=== PATIENT | female | born 1985 | race Caucasian/White ===

== ENCOUNTER 2020-02-08 15:11 | Inpatient (IN) | payer BC ==
[~2020-02-08 15:11] MED LIST: Dexamethasone 20 MG/5 ML VIAL ONE; Ketorolac Tromethamine 30 MG/ML VIAL ONE; Lidocaine 1% PF 5 ML VIAL ONE; Ondansetron PF 4 MG/2 ML Vial ONE; PROPOFOL 200 MG/20 ML VIAL ONE
--- NOTE | 2020-02-08 16:56 | ULT ---
TRANSABDOMINAL AND TRANSVAGINAL PELVIC ULTRASOUND WITH MEJÍA SCALE, COLOR FLOW AND SPECTRAL DOPPLER IM AGIN02/08/20 HISTORY: 34-year-old female with miscarriage on 01/07/20 with fever, chills, abdominal pain, vaginal bleeding and positive test. FINDINGS/IMPRESSION: The uterus measures 9.4 x 5 x 6.3 cm. The endometrium measures 2.6 cm in thickness and contains pocke ts of fluid. There is a complex mass with blood flow measuring 5.2 x 4.6 x 4.6 cm arising from the superior left a spect of the uterus and appears to be connected to the uterus. The etiology of this is uncertain. This may represent a neoplasm or products of conception in a bicor nuate uterus. Since there is flow within the mass, it is less likely to represent an abscess. The right ovary is normal and demonstrates flow. There is a complex cyst arising from the left ovary measuring 3.7 x 2.6 cm. Flow is demonstrated to the left ovary. There is a small amount of free fluid in the pelvis. Discussed over the telephone with the ER physician, Dr. Kang Tovar at 4:35 p.m. POS: OFF
[2020-02-08 17:14] LABS: #Lymphocytes 1.2 thou/uL (1.20-3.40); #Monocytes 1.1 thou/uL (0.11-0.59); #Neutrophils 12.5 thou/uL (1.40-6.50); %Basophils 0.1 % (0.0-1.0); %Eosinophils 0.2 % (0.0-10.0); %Lymphocytes 8.1 % (21.0-51.0); %Monocytes 7.6 % (0.0-10.0); %Neutrophils 84.1 % (42.0-75.0); Hemoglobin 12.8 g/dL (12.0-16.0); Mean Corpuscular HGB CONC 34.5 g/dL (32.0-36.0); Mean Corpuscular Hemoglobin 31.8 pg (27.0-31.0); Mean Corpuscular Volume 92.1 fL (78.0-98.0); Mean Platelet Volume 8.3 fL (7.4-10.4); Platelet Count 174 thou/uL (130-400); Red Blood Cell (RBC) Count 4.03 mill/uL (4.20-5.40); White Blood Cell (WBC) Count 14.9 thou/uL (4.8-10.8)
[2020-02-08 17:36] LABS: ALT (SGPT) 45 U/L (8-55); AST (SGOT) 28 U/L (5-34); Albumin 3.7 g/dL (3.5-5.0); Alkaline Phosphatase 90 U/L (40-110); Anion Gap 14 mmol/L (10-20); BUN (Urea Nitrogen) 10 mg/dL (7.0-18.7); Bilirubin, Total 0.7 mg/dL (0.2-1.2); Calc. Creatinine Clearance 0 mL/min (70-130); Calcium 8.5 mg/dL (7.8-10.44); Carbon Dioxide 21 mmol/L (22-29); Chloride 104 mmol/L (98-107); Globulin 3.2 g/dL (2.4-3.5); Glucose 86 mg/dL (70-105); Potassium 3.7 mmol/L (3.5-5.1); Protein, Total 6.9 g/dL (6.0-8.3); Sodium 135 mmol/L (136-145)
[2020-02-08] MEDS ORDERED: Ondansetron PF 4 MG/2 ML Vial IVP PRN (17:39)
[2020-02-08] MEDS ORDERED: diphenhydrAMINE 25 MG CAP PO PRN (17:40)
[2020-02-08] MEDS ORDERED: Morphine 4 MG/ML VIAL SLOW IVP PRN (17:40)
[2020-02-08] MEDS ORDERED: Ketorolac Tromethamine 30 MG/ML VIAL IVP PRN (17:40)
[2020-02-08] MEDS ORDERED: Bisacodyl 10 MG SUPP PR PRN (17:40)
[2020-02-08] MEDS ORDERED: Promethazine HCl 25 MG/ML VIAL IM PRN ×2 (17:40→20:47)
[2020-02-08] MEDS ORDERED: Zolpidem Tartrate 5 MG TAB PO PRN (17:40)
[2020-02-08] MEDS ORDERED: Simethicone Chewable 80 MG TAB PO PRN (17:40)
[2020-02-08] MEDS ORDERED: Ampicillin 2 GM VIAL ONE (17:43)
[2020-02-08] MEDS ORDERED: Clindamycin/D5W 900 mg/50 ml Premix Bag ONE (17:43)
[2020-02-08] MEDS ORDERED: Gentamicin 400 MG in Sodium Chloride 0.9% 100 ML IVPB SCH (17:45)
[2020-02-08] MEDS ORDERED: Lactated Ringer's 1,000 ML IV SCH (17:45)
[2020-02-08] MEDS ORDERED: Ampicillin 2 GM in Sodium Chloride 0.9% 100 ML IVPB SCH (18:00)
[2020-02-08 18:12] LABS: SARS-CoV-2 NAA Rapid Test DETECTED (NotDetected)
[2020-02-08] MEDS ORDERED: Ibuprofen 800 MG TAB ONE (18:15)
--- NOTE | 2020-02-08 18:37 | RAD ---
Chest one view HISTORY: Fever and cough. FINDINGS: Cardiac silhouette is magnified by projection. Pulmonary vasculature are unremarkable. Mediastinum is midline. There is blunting of the left lateral costophrenic angle. No lobar consolidation or evidence of pneum othorax. IMPRESSION : Small left pleural effusion. Cause is not evident.
[2020-02-08] MEDS ORDERED: Gentamicin 80 MG/2 ML VIAL ONE (19:25)
[2020-02-08] MEDS ORDERED: Fentanyl 100 MCG/2 ML VIAL ONE (19:48)
--- NOTE | 2020-02-08 20:18 | HP ---
CHIEF COMPLAINT: Lower abdominal pain and fever. HISTORY OF PRESENT ILLNESS: This is a 34-year-old, G5, P3-0-2-3, who presents with a history of worsening abdominal pain over the last several weeks, all across her lower abdomen, sharp and stabbing, constant, radiating down her legs and into her vagina. She has taken ibuprofen and Tylenol that have not helped with the pain. She also started developing fever 1 week ago and has been using antipyretics for that, which have brought her fever down. She thought maybe she had an influenza like illness because she had body aches and chills and she was also taking DayQuil and NyQuil, which were helping with the body aches. The patient reports having a miscarriage on January 06. She knew that she was approximately 5 weeks at that time and she started bleeding. She bled very heavy for 3 days, going through approximately 10 pads per day. At the conclusion of those days, she passed 3 separate large clots that appeared to contain tissue and she thought that everything had passed. She did not see a doctor during this time. However, the patient continued to bleed daily since then, going through 3 to 4 pads a day, more like a regular period flow, then subsequently had development of this pain several weeks ago that has only seemed to get worse, along with the persistent fever, she decided to come to the ER today as the pain had gotten too great. She also complains of some painful urination, burning and urinary frequency. She feels a constant pressure in her lower abdomen. She has not had any diarrhea, nausea, or vomiting. She does have abdominal bloating. The patient also reports a change in her discharge. She feels like she was passing some pus-like discharge with an odor to it. REVIEW OF SYSTEMS: GENERAL: Positive fever, chills, loss of appetite. No sleep problems. No weight loss or gain. CARDIOVASCULAR: No chest pain, shortness of breath, or palpitations. RESPIRATORY: Dry cough. No sputum production. No shortness of breath. No wheezing. GASTROINTESTINAL: See HPI. GENITOURINARY: See HPI. MUSCULOSKELETAL: Positive for muscle aches and muscle weakness with fever. NEUROLOGIC: Some dizziness with fever and headaches daily. SKIN: No rash. PSYCHIATRIC: No depression or anxiety. PAST MEDICAL HISTORY: Denies. 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 One previous miscarriage that required a D and C. Normal menstrual cycles every month. No history of abnormal Paps or STDs. PAST SURGICAL HISTORY: Appendectomy, D and C, tonsils. MEDICATIONS: Currently [id number] Tylenol and ibuprofen. ALLERGIES: NO KNOWN DRUG ALLERGIES. FAMILY HISTORY: Noncontributory. SOCIAL HISTORY: Negative x3. Currently visiting from [place]. PHYSICAL EXAMINATION: VITAL SIGNS: Temperature max is 103, temperature current 102.2, pulse is 95, respirations 20, blood pressure 105/64, O2 saturation 95% on room air. GENERAL: No acute distress. Appears uncomfortable. HEAD: Normocephalic, atraumatic. NECK: Supple without lymphadenopathy. CHEST: Clear to auscultation bilaterally. CARDIAC: Regular rate and rhythm. No murmur, gallop, or rub. ABDOMEN: Soft, nondistended. Bowel sounds are positive. Tenderness in the lower abdomen. No rebound. Voluntary guarding present, especially in the midline. EXTREMITIES: No edema, cyanosis, or clubbing. PELVIC: Normal external female genitalia. Blood is present on the external vulva. On speculum exam, there is blood pooling in the vault with small active bleeding from the cervix of brown blood. There is tenderness on speculum exam. There are no masses in the vagina or the cervix visible. On bimanual exam, there is cervical motion tenderness. The uterus feels enlarged and boggy, however, exam is difficult secondary to the patient's discomfort. LABORATORY DATA: White count is 14.9, hemoglobin 12.8, hematocrit 37.1, platelets 174. Chemistries are normal. Kidney function is normal. Lactic acid 0.8. HCG is 52. UA shows positive nitrites, 3+ protein, 1+ ketones, moderate blood. COVID is positive. Ultrasound shows the uterus measuring 9.4 x 5 x 6.3 with an endometrial thickness of 2.6 with pockets of fluid and irregularity. There is complex mass rising off the superior left aspect of the uterus, measuring 5.2 x 4.6 cm. There is flow within the mass. The right ovary is normal. There is a complex cyst of the left ovary, measuring 3.7 x 2.6 with positive flow. ASSESSMENT PLAN: A 34-year-old, P3, A2, with what appears to be retained products of conception and endometritis as well as COVID infection. The ultrasound findings of the mass off the superior aspect of the left side of the uterus appear to be either a fibroid versus a bicornuate uterus with products of conception. I feel that disposition for the patient to go to the OR for evacuation of the uterus to improve the infection is necessary at this time and plan for ultrasound guidance while doing the D and C, do not feel that laparoscopy or laparotomy is necessary at this time and do not feel that the patient's current symptomatology would represent an ectopic that was undiagnosed. I have started the patient on triple antibiotics with ampicillin, gentamicin, and clindamycin, and plan to continue those IV antibiotics until the patient is 48 hours afebrile. As for the positive COVID test, the patient will be placed in droplet isolation and appropriate measures will be taken to evaluate and treat this patient for this infection. However, currently her most acute issue is the infection in her uterus. These things were discussed with the patient and she will be admitted to the AUTOMOTIVE DETAILER floor. Job ID: [id number]
[2020-02-08] MEDS ORDERED: HYDROmorphone 2 MG/ML VIAL SLOW IVP PRN (20:47)
[2020-02-08] MEDS ORDERED: Promethazine HCl 25 MG/ML VIAL SLOW IVP PRN (20:47)
[2020-02-08] MEDS ORDERED: PACU-Morphine 4MG/ML VIAL SLOW IVP PRN (20:47)
[2020-02-08] MEDS ORDERED: Morphine Sulfate 2 MG/ML SYRINGE SLOW IVP PRN (20:47)
[2020-02-08] MEDS ORDERED: Ondansetron HCl/PF 4 MG/2 ML Vial IVP PRN (20:47)
[2020-02-08] MEDS ORDERED: Clindamycin/D5W 900 MG in Premix Bag 1 BAG IVPB SCH (22:00)
[2020-02-09] MEDS: Ampicillin 2 GM in Sodium Chloride 0.9% 100 ML IVPB SCH ×3 (00:50→11:36)
[2020-02-09] MEDS: Clindamycin/D5W 900 MG in Premix Bag 1 BAG IVPB SCH ×2 (01:53→09:40)
[2020-02-09 05:57] LABS: Hemoglobin 11.2 g/dL (12.0-16.0); Mean Corpuscular Hemoglobin 30.6 pg (27.0-31.0); Mean Corpuscular Volume 92.8 fL (78.0-98.0); Mean Platelet Volume 8.1 fL (7.4-10.4); Platelet Count 170 thou/uL (130-400); RBC Distribution Width 11.1 % (11.5-14.5); Red Blood Cell (RBC) Count 3.67 mill/uL (4.20-5.40); White Blood Cell (WBC) Count 11.2 thou/uL (4.8-10.8)
[2020-02-09 08:13] VITALS: BP 95/51; TEMP 97.8
--- NOTE | 2020-02-09 09:09 | DIS ---
DATE OF ADMISSION: 02/08/2020 DATE OF DISCHARGE: 02/09/2020 ADMITTING DIAGNOSES: 1. Fever. 2. Abdominal pelvic pain. 3. Vaginal bleeding. 4. Positive test. 5. Positive COVID status. DISCHARGE DIAGNOSES: 1. Fever. 2. Abdominal pelvic pain. 3. Vaginal bleeding. 4. Positive test. 5. Positive COVID status. 6. Pedunculated fibroid and left adnexal mass. PROCEDURE: Suction D and C with exam under anesthesia. CONSULTATIONS: PRE CODER. HOSPITAL COURSE: The patient is a 34-year-old female, who presented to the emergency room with fever, nausea, vomiting, cough, vaginal bleeding and pelvic abdominal pain with a history of a miscarriage about 5 weeks previous. The patient reports that her abdominal pain had been getting worse and that she had 4 days of fever and came in for evaluation. The patient was tested for COVID and came back positive. She also came back positive for a positive quantitative hCG of 52 and an ultrasound showing a thickened endometrial stripe of 2.5 cm in adjacent anatomic structure that was initially thought to be a uterine horn from a bicornuate uterus and left ovarian adnexal mass. Given these findings and the patient's symptoms, there was some concern that she had an incomplete AB that it has become septic and was taken to the operating room for evaluation. There, exam under anesthesia revealed this adjacent mass to likely be fibroid due to its hard firm density on palpation rather than a uterine horn. There is no evidence during the operation consistent with a septic AB. No odor. No excessive discharge. No purulence and very scant return on the suction D and C portion. For complete details, please refer to the operative note. The patient was taken back to her room once recovered from anesthesia. Since admission, the patient had been on ampicillin, gentamicin, and clindamycin and this was continued through her stay. Given the lateness of the hour and the overall symptoms, the patient was kept overnight. Here, on hospital day 2, the patient reports that she is feeling much better. She has no abdominal pain and has remained afebrile. PHYSICAL EXAMINATION: VITAL SIGNS: At the time of discharge, blood pressure 95/51, pulse is 65, respiratory rate 18, saturating 96% on room air, and temperature 97.8. GENERAL: She appears to be in no acute distress. She is alert and oriented, cooperative and pleasant to interact with. HEENT: Head is normocephalic, atraumatic. ABDOMEN: Soft. PELVIS: Soft, nontender. ASSESSMENT AND PLAN: We discussed my findings in the operating room and my low suspicion that she has a pelvic infection. We gave her three options, 1. To continue IV antibiotics as we cannot say with 100% certainty that she does not have an infection due to an incomplete AB as we have no pathology report back to confirm one where the other. 2. Would be discharged home on oral antibiotics, where she can be in self isolate and will continue doxycycline and Flagyl for 5 days. 3. Would be to go home without any antibiotics assuming that there is no bacterial infection that all of her symptoms are associated with the SARS-CoV-2 infection. After some discussion, we opted to go home with antibiotics. The patient will be self quarantining for the next 10 weeks. She also will be on doxycycline 100 mg twice a day for the next 5 days and metronidazole 500 mg t.i.d. for the next 5 days. She will need to follow up with an OB provider of choice. The patient has recently moved temporarily from [place] and is currently staying in [place] with a friend. She has been given instructions to seek medical attention should she experience increasing shortness of breath, difficulty breathing, or other signs making it difficult to remain at home safely. Job ID: [id number] [facility]
[2020-02-09] MEDS ORDERED: Gentamicin 400 MG in Sodium Chloride 0.9% 100 ML IVPB SCH (18:00)
[2020-02-09] MEDS ORDERED: FLU VACC QS2020-21(6MOS UP)/PF 60 MCG/0.5 ML SYRINGE IM ONE (21:00)
[2020-02-09 22:32] LABS: Chlamydia by PCR Not Detected (NotDetected); GC by PCR Not Detected (NotDetected)
--- NOTE | 2020-02-10 06:27 | OP ---
DATE OF PROCEDURE: 02/09/2020 PREOPERATIVE DIAGNOSES: 1. Fever with abdominal pain and a positive test. 2. Concerns for incomplete , possibly septic. 3. COVID positive. 4. Vaginal bleeding. 5. Pelvic mass. POSTOPERATIVE DIAGNOSES: 1. Fever with abdominal pain and a positive test. 2. Concerns for incomplete , possibly septic. 3. COVID positive. 4. Vaginal bleeding. 5. Pelvic mass. PROCEDURES PERFORMED: Exam under anesthesia, and suction dilation and curettage. POWER SHEAR OPERATOR: Tatyana Hirsch MD ESTIMATED BLOOD LOSS: Less than 100 mL. COMPLICATIONS: None. COUNTS: Correct. CONDITION: Stable to recovery room. FINDINGS: Anteverted uterus with dilated os and uterine sounds to approximately . There is a palpable left adnexal mass that is soft, corresponding with a 5 cm ovary with cystic mass. There is another mass, very hard, attached to the left anterior side of the uterus, around the middle section of the uterus that is firm and approximately 7 cm in diameter consistent with a pedunculated fibroid. DESCRIPTION OF PROCEDURE: The patient is a 34-year-old female, who presented to the emergency room with reports of worsening abdominal pain over the last several weeks, fever, flu-like symptoms, and a history of miscarriage approximately five weeks ago. The patient was admitted and diagnosed with COVID and ultimately sent to the operating room for further evaluation. At this point in time, my partner and I changed shifts. Dr. Vincent had worked her up, up to this point. When I presented, the patient was intubated and in lithotomy position in [facility]. There was initial concern that the patient may have a bicornuate uterus with an incomplete AB in one or the other horn. On physical exam prior to the procedure, with the patient intubated, the uterus was palpable and anteverted. There was a left ovarian mass, very soft and about 5 cm dilated, corresponding with ultrasound findings. There was also very palpable and present anterior and to the left, a hard round mass that feels to be connected to the uterus. This mass by palpation feels consistent with a pedunculated fibroid. An operative speculum was then placed identifying the cervix. The cervix was grasped with a single-tooth tenaculum. There was some minimal bleeding present. The uterus was easily sounded to approximately , anteverted. Attempts were made gently to see if there was any other communication. Ultrasound was used intraoperatively. This mass that palpated like a fibroid also appeared like a fibroid with a very heterogeneous appearance inconsistent with the smooth texture of the uterus. Also, there was no area that could be identified as an endometrium or cavity. A 10 mm suction curette was then used at 35 cm of water. The suction curette was then gently passed into the uterus, seeding it gently to the fundus and making three consecutive passes, very little return was collected. There was no purulence. There was no discoloration to the bleeding prior to the procedure or at time of the procedure. There was very little tissue return. A sharp curette was then used and all four quadrants felt a good cry. The device was passed one more time. At this point in time, the uterus was then bleeding slightly. The tenaculum was removed. The bleeding spontaneously resolved, and the patient was taken out of lithotomy position once extubated and sent to Recovery. Job ID: [id number]
--- NOTE | 2020-02-15 11:00 | EKG ---
Test Reason : Blood Pressure : / mmHG Vent. Rate : 098 BPM Atrial Rate : 098 BPM P-R Int : 142 ms QRS Dur : 088 ms QT Int : 342 ms P-R-T Axes : 050 026 036 degrees QTc Int : 436 ms Normal sinus rhythm Normal ECG Confirmed by JOSEPH PARDO DO ([id number]), news editor CNADACE GALAN ([id number]) on 02/15/2020 10:59:32 AM Referred By: Confirmed By:JOSEPH PARDO DO
== END 2020-02-09 13:20 | disposition home or self-care (01) | DRG 770 ==
LOC: ERS 15:11 → 3SW 17:40
PROVIDERS: ADMIT Student in an Organized Health Care Education/Training Program; ATTEND Student in an Organized Health Care Education/Training Program
PROC: 8E0ZXY6 Isolation (ICD-10-PCS; 2020-02-08)
PROC: 10D17ZZ Extraction of Products of Conception, Retained, Via Natural or Artificial Opening (ICD-10-PCS; principal; 2020-02-09)
DX: O03.1 Delayed or excessive hemorrhage following incomplete spontaneous abortion (principal); U07.1 COVID-19; D25.9 Leiomyoma of uterus, unspecified; E27.8 Other specified disorders of adrenal gland
CPT/HCPCS: 36415; 71045; 76856; 84702; 85027; 86850; 86900; 86901; 87480; 87491; 87510; 87591; 87660; 88305; 93005; 96365; 96366; 96367; J0290; J1100; J1580; J1885; J2405; J2704; J3010; J3490; U0002

== ENCOUNTER 2024-10-29 17:06 | Emergency (ER) | payer OTHER, SELFPAY ==
[2024-10-29 18:20] LABS: #Basophils 0.06 10x3/uL (0.0-0.2); #Eosinophils 0.05 10x3/uL (0.0-0.7); #Monocytes 0.72 10x3/uL (0.11-0.59); #Neutrophils 6.00 10x3/uL (1.40-6.50); %Basophils 0.7 % (0.0-1.0); %Eosinophils 0.5 % (0.0-10.0); %Lymphocytes 25.5 % (21.0-51.0); %Monocytes 7.8 % (0.0-10.0); %Neutrophils 65.2 % (42.0-75.0); Hematocrit 39.6 % (36.0-47.0); Hemoglobin 12.9 g/dL (12.0-16.0); Mean Corpuscular Hemoglobin 30.0 pg (27.0-31.0); Mean Corpuscular Volume 92.1 fL (78.0-98.0); Platelet Count 218 10x3/uL (130-400); Red Blood Cell (RBC) Count 4.30 mill/uL (4.20-5.40); White Blood Cell (WBC) Count 9.21 10x3/uL (4.8-10.8)
[2024-10-29 18:43] LABS: ALT (SGPT) 14 U/L (Less than 34); AST (SGOT) 16 U/L (11-34); Albumin 4.1 g/dL (3.1-4.5); Alkaline Phosphatase 69 U/L (40-110); Anion Gap 13 mmol/L (10-20); BUN (Urea Nitrogen) 13 mg/dL (7.0-18.7); Bilirubin, Total 0.3 mg/dL (0.3-1.2); Calc. Creatinine Clearance 0 mL/min (70-130); Calcium 9.0 mg/dL (7.8-10.44); Carbon Dioxide 24 mmol/L (22-29); Chloride 106 mmol/L (98-107); Globulin 2.5 g/dL (2.4-3.5); Glucose 96 mg/dL (70-105); Lipase 23 U/L (8-78); Potassium 4.3 mmol/L (3.5-5.1); Sodium 139 mmol/L (136-145)
[2024-10-29] MEDS ORDERED: Mag-Al 1200 mg/1200 mg/30 ML UDCUP ONE (18:50)
[2024-10-29] MEDS ORDERED: Lidocaine Viscous Sol 2% 15 ml UD Cup ONE (18:51)
[2024-10-29 19:08] LABS: Bacteria/HPF None Seen HPF (None Seen); CAUTI Indications for Culture Dysuria,urgency,freq; Glucose, Urine (Dipstick) Normal (Negative); Leukocyte Negative Leu/uL (Negative); Protein, Urine (Dipstick) Negative (Neg-Trace); RBC/HPF 0-3 HPF (0-3); Specific Gravity, Urine 1.022 (1.002-1.036); WBC/HPF 0-3 HPF (0-3)
[2024-10-29 19:19] LABS: Free T4 (Free Thyroxine) 1.24 ng/dL (0.70-1.48); Thyroid Stimulating Hormone 0.3433 uIU/mL (0.35-4.94)
[2024-10-29 19:20] LABS: Urine Culture Reflex No No
== END 2024-10-29 20:03 | disposition home or self-care (01) ==
LOC: ERS 17:06
DX: R07.9 Chest pain, unspecified (principal); E04.1 Nontoxic single thyroid nodule; Z55.6 Problems related to health literacy
CPT/HCPCS: 36415; 71045; 80053; 81001; 83690; 84439; 84443; 84484; 85025; 93005; Q0162